=== PATIENT | male | born 1955 | race Caucasian/White ===

== ENCOUNTER 2022-08-15 18:04 | Emergency (ER) | payer MEDICARE, OTHER, BC ==
[~2022-08-15] VITALS: Ht 165.1 cm; Wt 88.0 kg
[2022-08-15 18:05] VITALS: BP 167/86
[2022-08-15] MEDS ORDERED: amox tr/potassium clavulanate 875/125mg TAB PO ONE (19:10)
[2022-08-15] MEDS ORDERED: TETanus/Pertussis (Acell)/Diphther VAC/PF (Tdap-Adult) 0.5ml syringe IMVAC ONE (19:10)
--- NOTE | 2022-08-15 19:23 | NUR ---
xray at [facility]
[2022-08-15] MEDS ORDERED: AMOX-117 PO (19:48)
== END 2022-08-16 07:00 | disposition home or self-care (01) ==
LOC: ER 18:05
DX: S61.232A Puncture wound without foreign body of right middle finger without damage to nail, initial encounter (principal); W55.01XA Bitten by cat, initial encounter; Y93.89 Activity, other specified; Y92.89 Other specified places as the place of occurrence of the external cause; Y99.8 Other external cause status
CPT/HCPCS: 73130; 90471; 90715; 99283